=== PATIENT | female | born 1940 | race Caucasian/White ===

== ENCOUNTER → 2024-12-23 12:17 | Outpatient (REF) | payer MEDICARE, OTHER, SELFPAY ==
[2024-12-23 13:41] LABS: % Basophils 0.7 % (0-2); % Eosinophils 0.8 % (0-6); % Immature Granulocytes 0.3 % (0-0.5); % Lymphocytes 18.1 % (20.5-51.1); % Monocytes 8.2 % (1.7-9.3); % Neutrophils 71.9 % (42.2-75.2); Absolute Basophils 0.1 10^3/uL (0-0.2); Absolute Eosinophils 0.1 10^3/uL (0-0.7); Absolute Lymphocytes 1.3 10^3/uL (1.2-3.4); Absolute Monocytes 0.6 10^3/uL (0.1-0.6); Absolute Neutrophils 5.3 10^3/uL (1.4-6.5); Hematocrit 40.4 % (37.0-47.0); Hemoglobin 13.3 g/dL (12.0-16.0); Mean Corp Hgb Conc. 32.9 g/dL (33.0-37.0); Mean Corpuscular Hgb 30.3 pg (27.0-31.0); Mean Platelet Volume 10.1 fL (7.4-10.4); Nucleated Red Blood Cells % 0 %; Platelet Count 250 10^3/uL (130-400); Red Blood Cell Count 4.39 10^6/uL (4.20-5.40); Red Cell Dist. Width 13.3 % (11.5-14.5); White Blood Cell Count 7.4 10^3/uL (4.8-10.8)
[2024-12-23 13:56] LABS: ALT (SGPT) 23 U/L (0-35); AST (SGOT) 28 U/L (14-36); Albumin 4.6 g/dl (3.5-5.0); Alkaline Phosphatase 94 U/L (38-126); Blood Urea Nitrogen 30 mg/dl (7-17); Calcium 9.8 mg/dl (8.4-10.2); Carbon Dioxide 31 mmol/L (22-30); Chloride 107 mmol/L (98-107); Glucose 101 mg/dl (70-99); Potassium 5.2 mmol/L (3.5-5.1); Sodium 140 mmol/L (135-145); Total Bilirubin 0.8 mg/dl (0.2-1.3); Total Protein 7.2 g/dl (6.3-8.2)
== END ==
LOC: SDSPAT 12:17
PROVIDERS: ATTENDING PHYSICIAN Student in an Organized Health Care Education/Training Program; FAMILY PHYSICIAN Internal Medicine; OTHER PHYSICIAN Internal Medicine Cardiovascular Disease
DX: R94.39 Abnormal result of other cardiovascular function study (principal); I25.10 Atherosclerotic heart disease of native coronary artery without angina pectoris
CPT/HCPCS: 36415; 80053; 85025; 93005

== ENCOUNTER 2024-12-26 07:31 | Day surgery (SDC) | payer MEDICARE, OTHER, SELFPAY ==
[2024-12-23 13:01] VITALS: BMI 27.8
[2024-12-26] VITALS (15 sets, daily range): BP systolic 136–179; BP diastolic 59–100; BMI 27.8
[2024-12-26] MEDS: NSS 245 ML IV (09:23)
[2024-12-26] MEDS: NSS 1000 IV (11:59)
--- NOTE | 2024-12-26 19:25 | ITS.CL.PN ---
Scrap Handler - Procedure Note
Procedure
Procedure Note:
CARDIAC CATHETERIZATION REPORT
Date of Procedure: 12/26/2024
Referring: Dr. Ruth Johnson MD; MARLINE Spear
Indication: Dyspnea on exertion, positive cardiac stress test
PROCEDURE(S)
1. left heart catheterization
2. coronary angiography
ACCESS: 6F right radial artery (closure: radial band)
CATHETERS
1. 6F JR4
2. 6F JL5
MODERATE SEDATION: 35 minutes of moderate sedation was utilized. An independent hospital medical assistant was present to assist with and help manage the patient's level of consciousness and physiologic status.
HEMODYNAMIC DATA
LV 161/16 (EDP 34) mmHg
AO 162/78 (mean 113) mmHg
CORONARY ANGIOGRAPHY
Dominance: right
LM: Large with mild disease.
LAD: Large vessel giving rise to a a small D1 and medium caliber D2. There is mild diffuse disease.
LCx: Large vessel giving rise to a moderate caliber branching OM1 and several small distal OM branches. There is a mild focal stenosis at the ostium and otherwise mild diffuse disease.
RCA: Large vessel with a high rising anterior takeoff giving rise to a moderate caliber RPDA and 2 small RPL branches. There is a focal 60% stenosis in the mid RCA that is stable and unchanged from prior angiography.
RADIATION: dose 605 mGy; DAP 44 Gy*cm2; fluoroscopy time 8.6 min
CONCLUSIONS
1. Nonobstructive coronary artery disease as described, stable from 2020 angiography.
2. Severely elevated LV filling pressure and no aortic stenosis
RECOMMENDATIONS
1. Aggressive secondary prevention of coronary artery disease
2. Treatment of elevated LV filling pressure with GDMT for HFpEF and diuresis
Copy to: Dr. Ruth Johnson MD; MARLINE Spear (unloading checker); Megan Art MD (PCP)
Signed: Jaret Jeffrey MD, PhD
== END 2024-12-26 15:02 | disposition home or self-care (01) ==
LOC: CATH 07:31
PROVIDERS: ATTENDING PHYSICIAN Student in an Organized Health Care Education/Training Program; FAMILY PHYSICIAN Family Medicine; OTHER PHYSICIAN Internal Medicine Cardiovascular Disease
DX: I25.10 Atherosclerotic heart disease of native coronary artery without angina pectoris (principal); R94.39 Abnormal result of other cardiovascular function study; I11.0 Hypertensive heart disease with heart failure; I50.30 Unspecified diastolic (congestive) heart failure; E78.5 Hyperlipidemia, unspecified; I70.0 Atherosclerosis of aorta; I35.0 Nonrheumatic aortic (valve) stenosis; I08.0 Rheumatic disorders of both mitral and aortic valves; K21.9 Gastro-esophageal reflux disease without esophagitis; K22.70 Barrett's esophagus without dysplasia; M19.90 Unspecified osteoarthritis, unspecified site; M48.061 Spinal stenosis, lumbar region without neurogenic claudication; Z79.82 Long term (current) use of aspirin; Z79.899 Other long term (current) drug therapy; Z87.19 Personal history of other diseases of the digestive system; Z87.440 Personal history of urinary (tract) infections; Z85.828 Personal history of other malignant neoplasm of skin; M85.80 Other specified disorders of bone density and structure, unspecified site
CPT/HCPCS: 99152; 99153; 93458; C1894; Q9967